=== PATIENT | female | born 1995 | race Caucasian/White ===

== ENCOUNTER 2016-10-21 14:08 | Emergency (ER) | payer OTHER ==
[~2016-10-21] VITALS: Ht 149.9 cm; Wt 75.0 kg
[~2016-10-21 14:08] MED LIST: LITH300C3 PO; RISP2TAB22 PO
[2016-10-21] MEDS ORDERED: LEVO25TA9 PO (14:18)
[2016-10-21] MEDS ORDERED: OLAN2.5T3 PO (14:18)
[2016-10-21] MEDS ORDERED: ACETAMINOPHEN 500 MG TABLET PO ONE (18:15)
[2016-10-21 18:23] LABS: BASOPHILS % (AUTO) 1.8 % (0.0-2.0); EOSINOPHILS % (AUTO) 0.8 % (1.0-6.0); HEMOGLOBIN 13.2 g/dL (12.0-16.0); LYMPHOCYTES # (AUTO) 2.6 K/uL (1.0-4.8); LYMPHOCYTES % (AUTO) 16.7 % (22.0-44.0); MEAN CORPUSCULAR HEMOGLOBIN 29.9 pg (26.0-34.0); MEAN CORPUSCULAR HGB CONC 33.8 G/dL (31.0-37.0); MEAN CORPUSCULAR VOLUME 89 fL (80-100); MONOCYTES # (AUTO) 0.8 K/uL (0.1-1.0); MONOCYTES % (AUTO) 4.9 % (2.0-9.0); NEUTROPHILS # (AUTO) 11.7 K/uL (1.8-7.7); NEUTROPHILS % (AUTO) 75.8 % (40.0-70.0); PLATELET COUNT (AUTO) 309 K/uL (150-450); RED BLOOD CELL COUNT(AUTO) 4.41 MIL/uL (4.00-5.20); RED CELL DISTRIBUTION WIDTH 14.9 % (11.5-14.5); WHITE BLOOD COUNT (AUTO) 15.4 K/uL (4.5-11.0)
[2016-10-21 18:24] LABS: ANION GAP 10 mmol/L (8-16); CALCIUM, TOTAL 8.8 mg/dL (8.8-10.5); CARBON DIOXIDE 24 mmol/L (22-29); CHLORIDE 104 mmol/L (98-107); GLOMERULAR FILTR. RATE CALC > 60 mL/min (>60); POTASSIUM 3.8 mmol/L (3.5-5.1); SODIUM SERUM 138 mmol/L (136-145); UREA NITROGEN, BLOOD 9 mg/dL (7-18)
[2016-10-21 18:30] LABS: ALANINE AMINOTRANSFERASE 26 U/L (12-78); ALBUMIN 3.4 g/dL (3.4-5.0); ASPARTATE AMINOTRANSFERASE 15 U/L (15-37); BILIRUBIN,TOTAL 0.3 mg/dL (0.1-1.0); TOTAL PROTEIN, SERUM 7.2 g/dL (6.4-8.2)
[2016-10-21 21:36] VITALS: BP 121/83
[2016-10-21] MEDS ORDERED: LORazepam 2 MG TABLET PO ONE (21:45)
== END 2016-10-21 21:57 | disposition home or self-care (01) ==
LOC: EMS 14:10
DX: F41.9 Anxiety disorder, unspecified (principal); F31.9 Bipolar disorder, unspecified; E11.9 Type 2 diabetes mellitus without complications; E03.9 Hypothyroidism, unspecified; F15.90 Other stimulant use, unspecified, uncomplicated; F12.90 Cannabis use, unspecified, uncomplicated; Z91.018 Allergy to other foods
CPT/HCPCS: 36415; 80053; 80307; 84703; 85025; 99284; G0480

== ENCOUNTER 2018-04-30 13:28 | Inpatient (IN) | payer MEDICAID, OTHER ==
[~2018-04-30] VITALS: Ht 154.9 cm; Wt 72.7 kg
[~2018-04-30 13:28] MED LIST changes: +GABA-531 PO; -LITH300C3 PO; +OXCA300T29 PO; +QUET200T PO; -RISP2TAB22 PO
[2018-04-30] MEDS ORDERED: HALOPERIDOL LACTATE 5 MG/ML VIAL IM ONE ×2 (14:00→14:45)
[2018-04-30] MEDS ORDERED: LORazepam 2 MG/ML VIAL IM ONE ×2 (14:00→14:45)
[2018-04-30] MEDS ORDERED: DiphenhydrAMINE HCL 50 MG/ML VIAL IM ONE (14:00)
[2018-04-30 14:12] LABS: BASOPHILS % (AUTO) 1.1 % (0.0-2.0); EOSINOPHILS % (AUTO) 0.3 % (1.0-6.0); HEMATOCRIT 42.8 % (36-46); HEMOGLOBIN 14.4 g/dL (12.0-16.0); LYMPHOCYTES # (AUTO) 2.7 K/uL (1.0-4.8); LYMPHOCYTES % (AUTO) 13.9 % (22.0-44.0); MEAN CORPUSCULAR HGB CONC 33.6 G/dL (31.0-37.0); MEAN CORPUSCULAR VOLUME 92 fL (80-100); MONOCYTES # (AUTO) 1.6 K/uL (0.1-1.0); MONOCYTES % (AUTO) 8.2 % (2.0-9.0); NEUTROPHILS # (AUTO) 14.9 K/uL (1.8-7.7); NEUTROPHILS % (AUTO) 76.5 % (40.0-70.0); PLATELET COUNT (AUTO) 350 K/uL (150-450); RED BLOOD CELL COUNT(AUTO) 4.63 MIL/uL (4.00-5.20); RED CELL DISTRIBUTION WIDTH 13.5 % (11.5-14.5)
[2018-04-30 14:16] LABS: ANION GAP 9 mmol/L (8-16); CALCIUM, TOTAL 9.7 mg/dL (8.8-10.5); CARBON DIOXIDE 26 mmol/L (22-29); CHLORIDE 104 mmol/L (98-107); CREATININE 0.69 mg/dL (0.60-1.30); GLOMERULAR FILTR. RATE CALC > 60 mL/min (>60); GLUCOSE,RANDOM 105 mg/dL (70-110); POTASSIUM 3.6 mmol/L (3.5-5.1); SODIUM SERUM 139 mmol/L (136-145); UREA NITROGEN, BLOOD 14 mg/dL (7-18)
[2018-04-30 14:21] LABS: ALANINE AMINOTRANSFERASE 23 U/L (12-78); ALBUMIN 3.9 g/dL (3.4-5.0); ALKALINE PHOSPHATASE 57 U/L (46-116); ASPARTATE AMINOTRANSFERASE 28 U/L (15-37); BILIRUBIN,TOTAL 0.5 mg/dL (0.1-1.0); TOTAL PROTEIN, SERUM 7.3 g/dL (6.4-8.2)
[2018-04-30 15:20] LABS: APPEARANCE,URINE CLEAR (CLEAR); BILIRUBIN,URINE NEGATIVE (NEGATIVE); GLUCOSE, URINE (UA) NEGATIVE (NEGATIVE); KETONES,URINE TRACE mg/dL (NEGATIVE); LEUKOCYTE ESTERASE ,URINE NEGATIVE (NEGATIVE); NITRATE,URINE NEGATIVE (NEGATIVE); OCCULT BLOOD,URINE SMALL (NEGATIVE); PROTEIN,URINE TRACE (NEGATIVE); UROBILINOGEN,URINE 0.2 mg/dL (<=1.0)
[2018-04-30 15:25] LABS: AMPHET/METH SCREEN,URINE POSITIVE (NEGATIVE); BARBITURATE SCREEN, URINE NEGATIVE (NEGATIVE); BENZODIAZEPINES SCREEN,URINE NEGATIVE (NEGATIVE); CANNABINOID SCREEN,URINE POSITIVE (NEGATIVE); COCAINE SCREEN,URINE NEGATIVE (NEGATIVE); METHADONE SCREEN, URINE NEGATIVE (NEGATIVE); OPIATE SCREEN,URINE NEGATIVE (NEGATIVE)
[2018-04-30 15:30] LABS: WBC,URINE 0-2 /HPF (0-5)
[2018-04-30 15:31] LABS: BACTERIA,URINE Few /HPF (None Seen); MUCUS,URINE Moderate LPF (None Seen); SQUAMOUS EPITHELIAL CELL,UR Few /LPF (None Seen)
[2018-04-30 15:33] LABS: PHENCYCLIDINE SCREEN,URINE NEGATIVE (NEGATIVE)
[2018-04-30] MEDS ORDERED: ZOLPIDEM TARTRATE 10 MG TABLET PO PRN (17:15)
[2018-04-30 17:40] LABS: GLUCOSE,POINT OF CARE 102 MG/DL (70-110)
[2018-04-30 20:33] VITALS: BP 137/77
[2018-04-30] MEDS ORDERED: MAG HYDROX/AL HYDROX/SIMETH ES 30 ML SUSPENSION UDCUP PO PRN (20:45)
[2018-04-30] MEDS ORDERED: MAGNESIUM HYDROXIDE SUSPENSION 30 ML UDCUP PO PRN (20:45)
[2018-04-30] MEDS ORDERED: NICOTINE 14 MG/24 HOUR PATCH TD PRN (20:45)
[2018-04-30] MEDS ORDERED: LOPERAMIDE HCL 2 MG CAPSULE PO PRN (20:45)
[2018-04-30] MEDS ORDERED: CloNIDine HCL 0.1 MG TABLET PO PRN (20:45)
[2018-04-30] MEDS ORDERED: ALBUTEROL SULFATE HFA 90 MCG/PUFF 8 GM INHALER IH PRN (20:45)
[2018-04-30] MEDS ORDERED: IBUPROFEN 400 MG TABLET PO PRN (20:45)
[2018-04-30] MEDS ORDERED: DOCUSATE SODIUM 100 MG CAPSULE PO PRN (20:45)
[2018-04-30] MEDS ORDERED: GuaiFENesin/D-METHORPHAN [SUGAR-FREE] 200-20MG/10 ML SYRUP UDCUP PO PRN (20:45)
[2018-04-30] MEDS ORDERED: ONDANSETRON HCL 4 MG TABLET PO PRN (20:45)
[2018-04-30] MEDS ORDERED: PETROLATUM,WHITE 71 GM JELLY TP PRN (20:45)
[2018-04-30] MEDS ORDERED: ACETAMINOPHEN 325 MG TABLET PO PRN (20:45)
[2018-05-01 06:25] VITALS: BP 128/72
[2018-05-01] MEDS: HALOPERIDOL 5 MG TABLET PO PRN (06:29)
[2018-05-01] MEDS: LORazepam 2 MG TABLET PO PRN ×2 (06:29→18:34)
[2018-05-01 07:56] LABS: BASOPHILS % (AUTO) 0.7 % (0.0-2.0); EOSINOPHILS % (AUTO) 0.4 % (1.0-6.0); HEMATOCRIT 40.7 % (36-46); HEMOGLOBIN 13.7 g/dL (12.0-16.0); LYMPHOCYTES # (AUTO) 2.3 K/uL (1.0-4.8); LYMPHOCYTES % (AUTO) 18.6 % (22.0-44.0); MEAN CORPUSCULAR HEMOGLOBIN 30.9 pg (26.0-34.0); MEAN CORPUSCULAR HGB CONC 33.7 G/dL (31.0-37.0); MEAN CORPUSCULAR VOLUME 92 fL (80-100); MONOCYTES # (AUTO) 1.1 K/uL (0.1-1.0); MONOCYTES % (AUTO) 8.5 % (2.0-9.0); NEUTROPHILS % (AUTO) 71.8 % (40.0-70.0); PLATELET COUNT (AUTO) 326 K/uL (150-450); RED BLOOD CELL COUNT(AUTO) 4.44 MIL/uL (4.00-5.20); RED CELL DISTRIBUTION WIDTH 13.6 % (11.5-14.5)
[2018-05-01 08:07] LABS: HEMOGLOBIN A1C 5.2 % (4.5-6.2)
[2018-05-01 08:08] LABS: ALANINE AMINOTRANSFERASE 25 U/L (12-78); ALBUMIN 3.7 g/dL (3.4-5.0); ALKALINE PHOSPHATASE 57 U/L (46-116); ANION GAP 9 mmol/L (8-16); ASPARTATE AMINOTRANSFERASE 35 U/L (15-37); BILIRUBIN,TOTAL 0.5 mg/dL (0.1-1.0); CARBON DIOXIDE 26 mmol/L (22-29); CHLORIDE 103 mmol/L (98-107); CREATININE 0.74 mg/dL (0.60-1.30); GLOMERULAR FILTR. RATE CALC > 60 mL/min (>60); GLUCOSE,RANDOM 94 mg/dL (70-110); POTASSIUM 3.7 mmol/L (3.5-5.1); SODIUM SERUM 138 mmol/L (136-145); UREA NITROGEN, BLOOD 13 mg/dL (7-18)
[2018-05-01 08:19] LABS: CHOLESTEROL 156 mg/dL (131-200); FREE T4 (FREE THYROXINE) 0.92 ng/dL (0.76-1.46); HCG,QUANTITATIVE < 1 mIU/mL (0-6); HDL CHOLESTEROL 52 mg/dL (40-60); LDL CHOL (CALC.) 84 mg/dL (0-130); THYROID STIMULATING HORMONE 5.13 uIU/mL (0.36-3.74); TRIGLYCERIDES 101 mg/dL (15-150)
[2018-05-01 08:50] VITALS: BP 116/60
[2018-05-01] MEDS: QUEtiapine FUMARATE 100 MG TABLET PO SCH (12:43)
[2018-05-01] MEDS: OXcarbazepine 300 MG TABLET PO SCH ×2 (12:44→20:49)
[2018-05-01 16:36] VITALS: BP 150/85
[2018-05-01 20:45] VITALS: BP 107/70
[2018-05-01] MEDS: GABAPENTIN 300 MG CAPSULE PO SCH (20:49)
[2018-05-01] MEDS: QUEtiapine FUMARATE 200 MG TABLET PO SCH (20:49)
[2018-05-02] MEDS: QUEtiapine FUMARATE 100 MG TABLET PO SCH (08:19)
[2018-05-02] MEDS: OXcarbazepine 300 MG TABLET PO SCH ×2 (08:19→20:15)
[2018-05-02] MEDS: LORazepam 2 MG TABLET PO PRN ×2 (08:19→16:24)
[2018-05-02 08:40] VITALS: BP 121/73
[2018-05-02] MEDS: HALOPERIDOL 5 MG TABLET PO PRN ×2 (12:23→16:24)
[2018-05-02 16:00] VITALS: BP 126/84
[2018-05-02] MEDS: GABAPENTIN 300 MG CAPSULE PO SCH (20:15)
[2018-05-02] MEDS: QUEtiapine FUMARATE 200 MG TABLET PO SCH (20:17)
[2018-05-03 01:48] VITALS: BP 116/82
[2018-05-03] MEDS: LORazepam 2 MG TABLET PO PRN ×2 (05:49→10:51)
[2018-05-03] MEDS: HALOPERIDOL 5 MG TABLET PO PRN ×2 (05:49→10:51)
[2018-05-03] MEDS: QUEtiapine FUMARATE 100 MG TABLET PO SCH (08:08)
[2018-05-03] MEDS: OXcarbazepine 300 MG TABLET PO SCH (08:08)
[2018-05-03] MEDS ORDERED: QUET100T PO (11:19)
== END 2018-05-03 12:25 | disposition home or self-care (01) | DRG 750 ==
LOC: EMS 13:29 → B3A 19:09
PROVIDERS: ADMIT Psychiatry & Neurology Child & Adolescent Psychiatry; ATTEND Psychiatry & Neurology Psychiatry
DX: F25.0 Schizoaffective disorder, bipolar type (principal); R45.851 Suicidal ideations; F15.20 Other stimulant dependence, uncomplicated; E11.9 Type 2 diabetes mellitus without complications; Z78.1 Physical restraint status; D72.829 Elevated white blood cell count, unspecified; E03.9 Hypothyroidism, unspecified; F41.9 Anxiety disorder, unspecified; F90.9 Attention-deficit hyperactivity disorder, unspecified type; F10.10 Alcohol abuse, uncomplicated; F32.9 Major depressive disorder, single episode, unspecified; R51 Headache; Z71.41 Alcohol abuse counseling and surveillance of alcoholic; Z79.899 Other long term (current) drug therapy; Z91.010 Allergy to peanuts; Z71.51 Drug abuse counseling and surveillance of drug abuser
CPT/HCPCS: 83036; 84436; 84439; 84443; 87081; 96372; G0480; J1200; J1630; J2060

== ENCOUNTER 2018-05-05 10:10 | Inpatient (IN) | payer MEDICAID, OTHER ==
[~2018-05-05] VITALS: Ht 149.9 cm; Wt 62.4 kg
[~2018-05-05 10:10] MED LIST changes: +QUET100T PO
[2018-05-05 10:39] LABS: GLUCOSE,POINT OF CARE 107 MG/DL (70-110)
[2018-05-05] MEDS ORDERED: DiphenhydrAMINE HCL 50 MG/ML VIAL IM ONE (11:15)
[2018-05-05] MEDS ORDERED: LORazepam 2 MG/ML VIAL IM ONE (11:15)
[2018-05-05] MEDS ORDERED: HALOPERIDOL LACTATE 5 MG/ML VIAL IM ONE (11:15)
[2018-05-05 11:20] LABS: BASOPHILS % (AUTO) 0.3 % (0.0-2.0); EOSINOPHILS % (AUTO) 0.1 % (1.0-6.0); HEMATOCRIT 44.4 % (36-46); HEMOGLOBIN 15.1 g/dL (12.0-16.0); LYMPHOCYTES # (AUTO) 1.8 K/uL (1.0-4.8); LYMPHOCYTES % (AUTO) 11.5 % (22.0-44.0); MEAN CORPUSCULAR HEMOGLOBIN 31.5 pg (26.0-34.0); MEAN CORPUSCULAR HGB CONC 34.1 G/dL (31.0-37.0); MEAN CORPUSCULAR VOLUME 93 fL (80-100); MONOCYTES # (AUTO) 0.7 K/uL (0.1-1.0); MONOCYTES % (AUTO) 4.5 % (2.0-9.0); NEUTROPHILS # (AUTO) 13.3 K/uL (1.8-7.7); NEUTROPHILS % (AUTO) 83.6 % (40.0-70.0); PLATELET COUNT (AUTO) 347 K/uL (150-450); RED BLOOD CELL COUNT(AUTO) 4.79 MIL/uL (4.00-5.20); RED CELL DISTRIBUTION WIDTH 13.4 % (11.5-14.5)
[2018-05-05 11:22] LABS: AMPHET/METH SCREEN,URINE NEGATIVE (NEGATIVE); BARBITURATE SCREEN, URINE NEGATIVE (NEGATIVE); BENZODIAZEPINES SCREEN,URINE NEGATIVE (NEGATIVE); CANNABINOID SCREEN,URINE POSITIVE (NEGATIVE); COCAINE SCREEN,URINE NEGATIVE (NEGATIVE); METHADONE SCREEN, URINE NEGATIVE (NEGATIVE); OPIATE SCREEN,URINE NEGATIVE (NEGATIVE)
[2018-05-05 11:23] LABS: PHENCYCLIDINE SCREEN,URINE NEGATIVE (NEGATIVE)
[2018-05-05] MEDS ORDERED: IBUPROFEN 400 MG TABLET PO PRN ×2 (11:30→17:15)
[2018-05-05] MEDS ORDERED: ACETAMINOPHEN 325 MG TABLET PO PRN ×2 (11:30→17:15)
[2018-05-05 11:31] LABS: ANION GAP 9 mmol/L (8-16); CALCIUM, TOTAL 9.5 mg/dL (8.8-10.5); CARBON DIOXIDE 26 mmol/L (22-29); CHLORIDE 102 mmol/L (98-107); CREATININE 0.79 mg/dL (0.60-1.30); GLOMERULAR FILTR. RATE CALC > 60 mL/min (>60); GLUCOSE,RANDOM 133 mg/dL (70-110); POTASSIUM 3.8 mmol/L (3.5-5.1); SODIUM SERUM 137 mmol/L (136-145); UREA NITROGEN, BLOOD 8 mg/dL (7-18)
[2018-05-05 11:37] LABS: ALANINE AMINOTRANSFERASE 24 U/L (12-78); ALBUMIN 3.9 g/dL (3.4-5.0); ALKALINE PHOSPHATASE 61 U/L (46-116); ASPARTATE AMINOTRANSFERASE 19 U/L (15-37); BILIRUBIN,TOTAL 0.3 mg/dL (0.1-1.0); TOTAL PROTEIN, SERUM 7.5 g/dL (6.4-8.2)
[2018-05-05 16:42] VITALS: BP 131/69
[2018-05-05] MEDS: LORazepam 2 MG TABLET PO PRN (17:10)
[2018-05-05] MEDS: HALOPERIDOL 5 MG TABLET PO PRN (17:10)
[2018-05-05] MEDS ORDERED: MAG HYDROX/AL HYDROX/SIMETH ES 30 ML SUSPENSION UDCUP PO PRN (17:15)
[2018-05-05] MEDS ORDERED: ONDANSETRON HCL 4 MG TABLET PO PRN (17:15)
[2018-05-05] MEDS ORDERED: GuaiFENesin/D-METHORPHAN [SUGAR-FREE] 200-20MG/10 ML SYRUP UDCUP PO PRN (17:15)
[2018-05-05] MEDS ORDERED: CloNIDine HCL 0.1 MG TABLET PO PRN (17:15)
[2018-05-05] MEDS ORDERED: DOCUSATE SODIUM 100 MG CAPSULE PO PRN (17:15)
[2018-05-05] MEDS ORDERED: LOPERAMIDE HCL 2 MG CAPSULE PO PRN (17:15)
[2018-05-05] MEDS ORDERED: ALBUTEROL SULFATE HFA 90 MCG/PUFF 8 GM INHALER IH PRN (17:15)
[2018-05-05] MEDS ORDERED: MAGNESIUM HYDROXIDE SUSPENSION 30 ML UDCUP PO PRN (17:15)
[2018-05-05] MEDS ORDERED: PETROLATUM,WHITE 71 GM JELLY TP PRN (17:15)
[2018-05-05] MEDS ORDERED: PNEUMOCOCCAL VACCINE POLYVALENT 0.5 ML VIAL [PPSV23] IM ONE (18:30)
[2018-05-06 05:03] VITALS: BP 136/72
[2018-05-06 08:20] LABS: BASOPHILS % (AUTO) 0.5 % (0.0-2.0); EOSINOPHILS % (AUTO) 1.1 % (1.0-6.0); HEMATOCRIT 43.6 % (36-46); HEMOGLOBIN 14.9 g/dL (12.0-16.0); LYMPHOCYTES # (AUTO) 2.1 K/uL (1.0-4.8); MEAN CORPUSCULAR HEMOGLOBIN 31.6 pg (26.0-34.0); MEAN CORPUSCULAR HGB CONC 34.3 G/dL (31.0-37.0); MEAN CORPUSCULAR VOLUME 92 fL (80-100); MONOCYTES # (AUTO) 0.8 K/uL (0.1-1.0); NEUTROPHILS # (AUTO) 7.9 K/uL (1.8-7.7); NEUTROPHILS % (AUTO) 72.4 % (40.0-70.0); PLATELET COUNT (AUTO) 302 K/uL (150-450); RED BLOOD CELL COUNT(AUTO) 4.73 MIL/uL (4.00-5.20); RED CELL DISTRIBUTION WIDTH 13.6 % (11.5-14.5)
[2018-05-06 08:38] VITALS: BP 124/75
[2018-05-06 08:38] LABS: HEMOGLOBIN A1C 5.4 % (4.5-6.2)
[2018-05-06] MEDS: NICOTINE 7 MG/24 HOUR PATCH TD SCH (08:45)
[2018-05-06] MEDS: LORazepam 2 MG TABLET PO PRN (08:45)
[2018-05-06] MEDS: HALOPERIDOL 5 MG TABLET PO PRN (08:46)
[2018-05-06 09:01] LABS: ALANINE AMINOTRANSFERASE 22 U/L (12-78); ALBUMIN 3.6 g/dL (3.4-5.0); ALKALINE PHOSPHATASE 56 U/L (46-116); ANION GAP 7 mmol/L (8-16); ASPARTATE AMINOTRANSFERASE 27 U/L (15-37); BILIRUBIN,TOTAL 0.3 mg/dL (0.1-1.0); CALCIUM, TOTAL 9.5 mg/dL (8.8-10.5); CARBON DIOXIDE 30 mmol/L (22-29); CHLORIDE 103 mmol/L (98-107); CHOL/HDL RATIO 3.6 (3.9-5.7); CHOLESTEROL 174 mg/dL (131-200); CREATININE 0.83 mg/dL (0.60-1.30); GLOMERULAR FILTR. RATE CALC > 60 mL/min (>60); GLUCOSE,RANDOM 79 mg/dL (70-110); HDL CHOLESTEROL 49 mg/dL (40-60); LDL CHOL (CALC.) 100 mg/dL (0-130); POTASSIUM 4.9 mmol/L (3.5-5.1); SODIUM SERUM 140 mmol/L (136-145); THYROID STIMULATING HORMONE 2.46 uIU/mL (0.36-3.74); TOTAL PROTEIN, SERUM 6.7 g/dL (6.4-8.2); TRIGLYCERIDES 127 mg/dL (15-150); UREA NITROGEN, BLOOD 15 mg/dL (7-18)
[2018-05-06] MEDS: QUEtiapine FUMARATE 100 MG TABLET PO SCH (12:29)
[2018-05-06] MEDS: OXcarbazepine 300 MG TABLET PO SCH (16:35)
[2018-05-06 17:13] VITALS: BP 106/60
[2018-05-06] MEDS: GABAPENTIN 300 MG CAPSULE PO SCH (20:42)
[2018-05-06] MEDS: QUEtiapine FUMARATE 200 MG TABLET PO SCH (20:42)
[2018-05-07 05:54] VITALS: BP 123/70
[2018-05-07] MEDS: LORazepam 2 MG TABLET PO PRN ×3 (08:10→17:00)
[2018-05-07] MEDS: OXcarbazepine 300 MG TABLET PO SCH ×2 (08:10→17:17)
[2018-05-07] MEDS: HALOPERIDOL 5 MG TABLET PO PRN ×3 (08:11→17:00)
[2018-05-07] MEDS: QUEtiapine FUMARATE 100 MG TABLET PO SCH (08:11)
[2018-05-07] MEDS: NICOTINE 7 MG/24 HOUR PATCH TD SCH (08:11)
[2018-05-07 08:19] VITALS: BP 122/70
[2018-05-07 16:15] VITALS: BP 123/87
[2018-05-07] MEDS: MUPIROCIN CALCIUM 2% 15 GM CREAM TP SCH (17:17)
[2018-05-07] MEDS: GABAPENTIN 300 MG CAPSULE PO SCH (20:20)
[2018-05-07] MEDS: QUEtiapine FUMARATE 200 MG TABLET PO SCH (20:20)
[2018-05-08 00:15] VITALS: BP 128/80
[2018-05-08] MEDS: LORazepam 2 MG TABLET PO PRN ×3 (00:52→16:23)
[2018-05-08] MEDS: ZOLPIDEM TARTRATE 10 MG TABLET PO PRN (00:52)
[2018-05-08 08:37] VITALS: BP 118/67
[2018-05-08] MEDS: NICOTINE 7 MG/24 HOUR PATCH TD SCH (08:54)
[2018-05-08] MEDS: OXcarbazepine 300 MG TABLET PO SCH ×2 (08:54→16:23)
[2018-05-08] MEDS: MUPIROCIN CALCIUM 2% 15 GM CREAM TP SCH ×2 (08:55→17:24)
[2018-05-08] MEDS: QUEtiapine FUMARATE 100 MG TABLET PO SCH (09:00)
[2018-05-08 16:23] VITALS: BP 124/62
[2018-05-08] MEDS: QUEtiapine FUMARATE 200 MG TABLET PO SCH (20:53)
[2018-05-08] MEDS: GABAPENTIN 300 MG CAPSULE PO SCH (20:53)
[2018-05-09 01:20] VITALS: BP 116/71
[2018-05-09 08:41] VITALS: BP 120/73
[2018-05-09] MEDS: OXcarbazepine 300 MG TABLET PO SCH ×2 (09:12→17:09)
[2018-05-09] MEDS: QUEtiapine FUMARATE 100 MG TABLET PO SCH (09:12)
[2018-05-09] MEDS: MUPIROCIN CALCIUM 2% 15 GM CREAM TP SCH ×2 (09:12→16:34)
[2018-05-09] MEDS: NICOTINE 7 MG/24 HOUR PATCH TD SCH (09:13)
[2018-05-09] MEDS: LORazepam 2 MG TABLET PO PRN ×2 (11:07→16:32)
[2018-05-09] MEDS: HALOPERIDOL 5 MG TABLET PO PRN (16:32)
[2018-05-09 17:29] VITALS: BP 117/67
[2018-05-09] MEDS: GABAPENTIN 300 MG CAPSULE PO SCH (20:20)
[2018-05-09] MEDS: QUEtiapine FUMARATE 200 MG TABLET PO SCH (20:20)
[2018-05-10 06:25] VITALS: BP 122/78
[2018-05-10 08:16] VITALS: BP 117/75
[2018-05-10] MEDS: OXcarbazepine 300 MG TABLET PO SCH ×2 (08:38→17:24)
[2018-05-10] MEDS: QUEtiapine FUMARATE 100 MG TABLET PO SCH (08:38)
[2018-05-10] MEDS: NICOTINE 7 MG/24 HOUR PATCH TD SCH (08:39)
[2018-05-10] MEDS: LORazepam 2 MG TABLET PO PRN ×2 (08:40→17:24)
[2018-05-10] MEDS: MUPIROCIN CALCIUM 2% 15 GM CREAM TP SCH ×2 (08:40→17:24)
[2018-05-10 17:47] VITALS: BP 109/79
[2018-05-10] MEDS: HALOPERIDOL 5 MG TABLET PO PRN (19:00)
[2018-05-10] MEDS: GABAPENTIN 300 MG CAPSULE PO SCH (20:14)
[2018-05-10] MEDS: QUEtiapine FUMARATE 200 MG TABLET PO SCH (20:14)
[2018-05-11 00:30] VITALS: BP 121/78
[2018-05-11 08:13] VITALS: BP 121/69
[2018-05-11] MEDS: NICOTINE 7 MG/24 HOUR PATCH TD SCH ×2 (09:00→09:18)
[2018-05-11] MEDS: OXcarbazepine 300 MG TABLET PO SCH ×2 (09:19→16:26)
[2018-05-11] MEDS: QUEtiapine FUMARATE 100 MG TABLET PO SCH (09:20)
[2018-05-11] MEDS: MUPIROCIN CALCIUM 2% 15 GM CREAM TP SCH ×2 (09:22→16:26)
[2018-05-11] MEDS: HALOPERIDOL 5 MG TABLET PO PRN ×2 (09:26→16:26)
[2018-05-11] MEDS: LORazepam 2 MG TABLET PO PRN ×2 (09:26→16:26)
[2018-05-11 16:11] VITALS: BP 110/69
[2018-05-11] MEDS: QUEtiapine FUMARATE 200 MG TABLET PO SCH (21:37)
[2018-05-11] MEDS: GABAPENTIN 300 MG CAPSULE PO SCH (21:37)
[2018-05-12 01:45] VITALS: BP 122/78
[2018-05-12 08:18] VITALS: BP 114/74
[2018-05-12] MEDS: OXcarbazepine 300 MG TABLET PO SCH ×2 (08:25→17:09)
[2018-05-12] MEDS: QUEtiapine FUMARATE 100 MG TABLET PO SCH (08:26)
[2018-05-12] MEDS: LORazepam 2 MG TABLET PO PRN ×2 (08:26→17:09)
[2018-05-12] MEDS: MUPIROCIN CALCIUM 2% 15 GM CREAM TP SCH ×2 (08:26→17:08)
[2018-05-12] MEDS: NICOTINE 7 MG/24 HOUR PATCH TD SCH (08:33)
[2018-05-12] MEDS: HALOPERIDOL 5 MG TABLET PO PRN ×2 (09:50→17:09)
[2018-05-12 16:15] VITALS: BP 107/64
[2018-05-12] MEDS: QUEtiapine FUMARATE 200 MG TABLET PO SCH (20:24)
[2018-05-12] MEDS: ZOLPIDEM TARTRATE 10 MG TABLET PO PRN (20:24)
[2018-05-12] MEDS: GABAPENTIN 300 MG CAPSULE PO SCH (20:24)
[2018-05-13 06:10] VITALS: BP 101/65
[2018-05-13] MEDS: OXcarbazepine 300 MG TABLET PO SCH ×3 (08:05→16:01)
[2018-05-13] MEDS: NICOTINE 7 MG/24 HOUR PATCH TD SCH (08:05)
[2018-05-13] MEDS: QUEtiapine FUMARATE 100 MG TABLET PO SCH (08:05)
[2018-05-13] MEDS: MUPIROCIN CALCIUM 2% 15 GM CREAM TP SCH (08:05)
[2018-05-13 08:16] VITALS: BP 109/71
[2018-05-13] MEDS: HALOPERIDOL 5 MG TABLET PO PRN ×2 (09:21→14:39)
[2018-05-13 17:10] VITALS: BP 120/73
[2018-05-13] MEDS: ZOLPIDEM TARTRATE 10 MG TABLET PO PRN (21:28)
[2018-05-13] MEDS: GABAPENTIN 300 MG CAPSULE PO SCH (21:28)
[2018-05-13] MEDS: QUEtiapine FUMARATE 200 MG TABLET PO SCH (21:28)
[2018-05-14 01:52] VITALS: BP 108/65
[2018-05-14 08:22] VITALS: BP 97/63
[2018-05-14] MEDS: HALOPERIDOL 5 MG TABLET PO PRN ×2 (08:45→16:15)
[2018-05-14] MEDS: NICOTINE 7 MG/24 HOUR PATCH TD SCH (09:00)
[2018-05-14] MEDS: OXcarbazepine 300 MG TABLET PO SCH ×2 (09:48→16:14)
[2018-05-14] MEDS: QUEtiapine FUMARATE 100 MG TABLET PO SCH (09:48)
[2018-05-14 16:24] VITALS: BP 134/72
[2018-05-14] MEDS: QUEtiapine FUMARATE 200 MG TABLET PO SCH (20:06)
[2018-05-14] MEDS: GABAPENTIN 300 MG CAPSULE PO SCH (20:06)
[2018-05-15] MEDS: HALOPERIDOL 5 MG TABLET PO PRN ×2 (05:28→17:24)
[2018-05-15 06:40] VITALS: BP 113/71
[2018-05-15 08:42] VITALS: BP 111/60
[2018-05-15] MEDS: QUEtiapine FUMARATE 100 MG TABLET PO SCH (11:26)
[2018-05-15] MEDS: NICOTINE 7 MG/24 HOUR PATCH TD SCH (11:27)
[2018-05-15] MEDS: OXcarbazepine 300 MG TABLET PO SCH ×2 (11:27→17:24)
[2018-05-15 16:15] VITALS: BP 109/71
[2018-05-15] MEDS: LORazepam 2 MG TABLET PO PRN (17:24)
[2018-05-15] MEDS: GABAPENTIN 300 MG CAPSULE PO SCH (20:33)
[2018-05-15] MEDS: QUEtiapine FUMARATE 200 MG TABLET PO SCH (20:33)
[2018-05-16 06:42] VITALS: BP 102/57
[2018-05-16] MEDS: QUEtiapine FUMARATE 100 MG TABLET PO SCH (08:11)
[2018-05-16] MEDS: OXcarbazepine 300 MG TABLET PO SCH ×2 (08:12→17:40)
[2018-05-16 08:16] VITALS: BP 106/77
[2018-05-16] MEDS: NICOTINE 7 MG/24 HOUR PATCH TD SCH (08:19)
[2018-05-16] MEDS: HALOPERIDOL 5 MG TABLET PO PRN ×2 (08:37→17:41)
[2018-05-16 16:10] VITALS: BP 118/72
[2018-05-16] MEDS: QUEtiapine FUMARATE 200 MG TABLET PO SCH (20:48)
[2018-05-16] MEDS: ZOLPIDEM TARTRATE 10 MG TABLET PO PRN (20:48)
[2018-05-16] MEDS: GABAPENTIN 300 MG CAPSULE PO SCH (20:48)
[2018-05-17 06:04] VITALS: BP 114/80
[2018-05-17] MEDS: QUEtiapine FUMARATE 100 MG TABLET PO SCH (08:08)
[2018-05-17] MEDS: OXcarbazepine 300 MG TABLET PO SCH (08:08)
[2018-05-17] MEDS: NICOTINE 7 MG/24 HOUR PATCH TD SCH (08:08)
[2018-05-17 08:22] VITALS: BP 119/65
== END 2018-05-17 10:00 | disposition home or self-care (01) | DRG 753 ==
LOC: EMS 10:11 → B3A 13:01
PROVIDERS: ADMIT Psychiatry & Neurology Psychiatry; ATTEND Psychiatry & Neurology Psychiatry
DX: F31.2 Bipolar disorder, current episode manic severe with psychotic features (principal); E11.9 Type 2 diabetes mellitus without complications; D72.829 Elevated white blood cell count, unspecified; F10.10 Alcohol abuse, uncomplicated; E03.9 Hypothyroidism, unspecified; F12.10 Cannabis abuse, uncomplicated; F41.9 Anxiety disorder, unspecified; F15.90 Other stimulant use, unspecified, uncomplicated; F90.9 Attention-deficit hyperactivity disorder, unspecified type; Z59.0 Homelessness; Z71.41 Alcohol abuse counseling and surveillance of alcoholic; Z71.51 Drug abuse counseling and surveillance of drug abuser; Z91.018 Allergy to other foods; Z79.899 Other long term (current) drug therapy
CPT/HCPCS: 83036; 84443; 87081; 90686; 90732; 96372; 99291; G0480; J1200; J1630; J2060

== ENCOUNTER 2019-12-08 23:42 | Inpatient (IN) | payer MEDICAID, OTHER ==
[~2019-12-08] VITALS: Ht 152.4 cm; Wt 51.7 kg
[~2019-12-08 23:42] MED LIST changes: +GABA-1181 PO; -GABA-531 PO; -OXCA300T29 PO; +OXCA300T57 PO
[2019-12-09] MEDS ORDERED: HALOPERIDOL LACTATE 5 MG/ML VIAL IM ONE (00:30)
[2019-12-09] MEDS ORDERED: LORazepam 2 MG/ML VIAL IM ONE (00:30)
[2019-12-09] MEDS ORDERED: DiphenhydrAMINE HCL 50 MG/ML VIAL IM ONE (00:30)
[2019-12-09 01:00] LABS: BASOPHILS % (AUTO) 0.5 % (0.0-2.0); EOSINOPHILS % (AUTO) 0.2 % (1.0-6.0); HEMATOCRIT 40.1 % (36-46); HEMOGLOBIN 13.2 g/dL (12.0-16.0); LYMPHOCYTES # (AUTO) 1.7 K/uL (1.0-4.8); LYMPHOCYTES % (AUTO) 12.5 % (22.0-44.0); MEAN CORPUSCULAR HGB CONC 32.9 G/dL (31.0-37.0); MEAN CORPUSCULAR VOLUME 94 fL (80-100); MONOCYTES # (AUTO) 0.9 K/uL (0.1-1.0); MONOCYTES % (AUTO) 6.6 % (2.0-9.0); NEUTROPHILS # (AUTO) 10.7 K/uL (1.8-7.7); NEUTROPHILS % (AUTO) 80.2 % (40.0-70.0); PLATELET COUNT (AUTO) 326 K/uL (150-450); RED BLOOD CELL COUNT(AUTO) 4.26 MIL/uL (4.00-5.20)
[2019-12-09 01:08] LABS: ANION GAP 13 mmol/L (8-16); CALCIUM, TOTAL 9.4 mg/dL (8.8-10.5); CARBON DIOXIDE 24 mmol/L (22-29); CHLORIDE 98 mmol/L (98-107); CREATININE 1.05 mg/dL (0.60-1.30); GLOMERULAR FILTR. RATE CALC > 60 mL/min (>60); GLUCOSE,RANDOM 167 mg/dL (70-110); POTASSIUM 3.1 mmol/L (3.5-5.1); SODIUM SERUM 135 mmol/L (136-145); UREA NITROGEN, BLOOD 11 mg/dL (7-18)
[2019-12-09] MEDS ORDERED: POTASSIUM CHLORIDE 20 MEQ ER TABLET PO ONE (01:30)
[2019-12-09 01:33] LABS: ALANINE AMINOTRANSFERASE 29 U/L (12-78); ALBUMIN 3.7 g/dL (3.4-5.0); ALKALINE PHOSPHATASE 54 U/L (46-116); ASPARTATE AMINOTRANSFERASE 26 U/L (15-37); BILIRUBIN,TOTAL 0.5 mg/dL (0.1-1.0); CREATINE KINASE, TOTAL ONLY 341 U/L (26-192); TOTAL PROTEIN, SERUM 7.2 g/dL (6.4-8.2)
[2019-12-09] MEDS ORDERED: ZOLPIDEM TARTRATE 10 MG TABLET PO PRN (02:15)
[2019-12-09] MEDS ORDERED: PERTUSS(ACELL),DIPH,TET VAC/PF 0.5 ML VIAL IM ONE (03:15)
[2019-12-09 04:56] LABS: HCG,QUANTITATIVE < 1 mIU/mL (0-6)
[2019-12-09] MEDS ORDERED: PNEUMOCOCCAL VACCINE POLYVALENT 0.5 ML VIAL [PPSV23] IM ONE (05:30)
[2019-12-09 05:45] VITALS: BP 120/81
[2019-12-09 06:18] LABS: GLUCOMETER DEV NAME(LOC) BV3S.; GLUCOSE,POINT OF CARE 89 MG/DL (70-110)
[2019-12-09] MEDS ORDERED: DOCUSATE SODIUM 100 MG CAPSULE PO PRN (07:45)
[2019-12-09] MEDS ORDERED: ACETAMINOPHEN 325 MG TABLET PO PRN (07:45)
[2019-12-09] MEDS ORDERED: LOPERAMIDE HCL 2 MG CAPSULE PO PRN (07:45)
[2019-12-09] MEDS ORDERED: GuaiFENesin/D-METHORPHAN [SUGAR-FREE] 200-20MG/10 ML SYRUP UDCUP PO PRN (07:45)
[2019-12-09] MEDS ORDERED: ONDANSETRON HCL 4 MG TABLET PO PRN (07:45)
[2019-12-09] MEDS ORDERED: MAGNESIUM HYDROXIDE SUSPENSION 30 ML UDCUP PO PRN (07:45)
[2019-12-09] MEDS ORDERED: CloNIDine HCL 0.1 MG TABLET PO PRN (07:45)
[2019-12-09] MEDS ORDERED: ALBUTEROL SULFATE HFA 90 MCG/PUFF 8 GM INHALER IH PRN (07:45)
[2019-12-09] MEDS ORDERED: NICOTINE 14 MG/24 HOUR PATCH TD PRN (07:45)
[2019-12-09] MEDS ORDERED: MAG HYDROX/AL HYDROX/SIMETH ES 30 ML SUSPENSION UDCUP PO PRN (07:45)
[2019-12-09] MEDS ORDERED: PETROLATUM,WHITE 28 GM JELLY TP PRN (07:45)
[2019-12-09 08:11] VITALS: BP 112/74
[2019-12-09 16:12] VITALS: BP 109/66
[2019-12-09] MEDS: LORazepam 2 MG TABLET PO PRN (17:25)
[2019-12-09] MEDS: BACITRACIN 28 GM OINTMENT TP SCH (17:25)
[2019-12-09] MEDS: OLANZapine 5 MG TABLET PO SCH (17:25)
[2019-12-10 04:20] VITALS: BP 106/68
[2019-12-10 08:28] VITALS: BP 110/69
[2019-12-10] MEDS: BACITRACIN 28 GM OINTMENT TP SCH ×2 (08:41→16:29)
[2019-12-10] MEDS: OLANZapine 5 MG TABLET PO SCH ×2 (08:41→16:29)
[2019-12-10] MEDS: LORazepam 2 MG TABLET PO PRN (16:29)
[2019-12-10 19:09] VITALS: BP 134/87
[2019-12-10] MEDS: HALOPERIDOL 5 MG TABLET PO PRN (19:29)
[2019-12-11 01:08] VITALS: BP 128/83
[2019-12-11 08:14] VITALS: BP 110/74
[2019-12-11 08:19] LABS: CHOL/HDL RATIO 3.5 (3.9-5.7); FREE T4 (FREE THYROXINE) 1.08 ng/dL (0.76-1.46); POTASSIUM 4.2 mmol/L (3.5-5.1); THYROID STIMULATING HORMONE 3.66 uIU/mL (0.36-3.74)
[2019-12-11] MEDS: OLANZapine 5 MG TABLET PO SCH ×2 (08:59→16:46)
[2019-12-11] MEDS: IBUPROFEN 400 MG TABLET PO PRN (08:59)
[2019-12-11] MEDS: BACITRACIN 28 GM OINTMENT TP SCH ×2 (08:59→17:03)
[2019-12-11] MEDS: LORazepam 2 MG TABLET PO PRN ×2 (08:59→16:46)
[2019-12-11 16:00] VITALS: BP 123/69
[2019-12-12 02:11] VITALS: BP 100/63
[2019-12-12 08:08] VITALS: BP 114/71
[2019-12-12] MEDS: OLANZapine 5 MG TABLET PO SCH ×2 (08:35→16:24)
[2019-12-12] MEDS: LORazepam 2 MG TABLET PO PRN ×2 (08:35→16:24)
[2019-12-12] MEDS: BACITRACIN 28 GM OINTMENT TP SCH ×2 (08:35→16:30)
[2019-12-12 16:04] VITALS: BP 110/70
[2019-12-12] MEDS: HALOPERIDOL 5 MG TABLET PO PRN (16:24)
[2019-12-13 03:44] VITALS: BP 114/72
[2019-12-13] MEDS: LORazepam 2 MG TABLET PO PRN ×2 (04:41→15:16)
[2019-12-13] MEDS: OLANZapine 5 MG TABLET PO SCH ×2 (09:00→16:01)
[2019-12-13] MEDS: BACITRACIN 28 GM OINTMENT TP SCH ×2 (09:00→16:02)
[2019-12-13 09:27] LABS: APPEARANCE,URINE CLOUDY (CLEAR); BILIRUBIN,URINE NEGATIVE (NEGATIVE); GLUCOSE, URINE (UA) NEGATIVE (NEGATIVE); KETONES,URINE NEGATIVE (NEGATIVE); LEUKOCYTE ESTERASE ,URINE TRACE (NEGATIVE); NITRATE,URINE NEGATIVE (NEGATIVE); OCCULT BLOOD,URINE NEGATIVE (NEGATIVE); PROTEIN,URINE NEGATIVE (NEGATIVE); UROBILINOGEN,URINE 0.2 mg/dL (<=1.0)
[2019-12-13 09:32] LABS: AMPHET/METH SCREEN,URINE NEGATIVE (NEGATIVE); BARBITURATE SCREEN, URINE NEGATIVE (NEGATIVE); BENZODIAZEPINES SCREEN,URINE NEGATIVE (NEGATIVE); CANNABINOID SCREEN,URINE POSITIVE (NEGATIVE); COCAINE SCREEN,URINE NEGATIVE (NEGATIVE); METHADONE SCREEN, URINE NEGATIVE (NEGATIVE); OPIATE SCREEN,URINE NEGATIVE (NEGATIVE)
[2019-12-13 09:33] LABS: PHENCYCLIDINE SCREEN,URINE NEGATIVE (NEGATIVE)
[2019-12-13 10:15] LABS: BACTERIA,URINE None Seen /HPF (None Seen); RBC,URINE None Seen /HPF (0-2); SQUAMOUS EPITHELIAL CELL,UR Many /LPF (None Seen); WBC,URINE 0-2 /HPF (0-5)
[2019-12-13] MEDS: CEPHALEXIN MONOHYDRATE 500 MG CAPSULE PO SCH ×2 (12:27→17:14)
[2019-12-13 13:57] VITALS: BP 116/73
[2019-12-13] MEDS: HALOPERIDOL 5 MG TABLET PO PRN (15:16)
[2019-12-13] MEDS: IBUPROFEN 400 MG TABLET PO PRN (16:00)
[2019-12-13] MEDS: SULFAMETHOX/TRIMETH DS 800-160 MG/TABLET PO SCH (16:01)
[2019-12-13 16:10] VITALS: BP 100/73
[2019-12-14] MEDS: CEPHALEXIN MONOHYDRATE 500 MG CAPSULE PO SCH ×5 (00:12→23:51)
[2019-12-14 06:36] VITALS: BP 104/66
[2019-12-14 08:17] VITALS: BP 118/65
[2019-12-14] MEDS: BACITRACIN 28 GM OINTMENT TP SCH ×2 (08:20→16:29)
[2019-12-14] MEDS: SULFAMETHOX/TRIMETH DS 800-160 MG/TABLET PO SCH ×2 (08:20→16:21)
[2019-12-14] MEDS: LORazepam 2 MG TABLET PO PRN ×2 (08:20→16:33)
[2019-12-14] MEDS: OLANZapine 5 MG TABLET PO SCH ×2 (08:20→16:21)
[2019-12-14 16:00] VITALS: BP 118/71
[2019-12-15 00:11] VITALS: BP 106/76
[2019-12-15] MEDS: CEPHALEXIN MONOHYDRATE 500 MG CAPSULE PO SCH ×3 (06:12→17:02)
[2019-12-15 08:10] VITALS: BP 103/62
[2019-12-15] MEDS: BACITRACIN 28 GM OINTMENT TP SCH ×2 (08:21→16:54)
[2019-12-15] MEDS: SULFAMETHOX/TRIMETH DS 800-160 MG/TABLET PO SCH ×2 (08:22→16:53)
[2019-12-15] MEDS: OLANZapine 5 MG TABLET PO SCH ×2 (08:22→16:54)
[2019-12-15] MEDS: LORazepam 2 MG TABLET PO PRN ×3 (08:22→18:25)
[2019-12-15 12:45] VITALS: BP 112/70
[2019-12-15 16:16] VITALS: BP 117/66
[2019-12-15] MEDS: OXcarbazepine 300 MG TABLET PO SCH (17:47)
[2019-12-15] MEDS: HALOPERIDOL 5 MG TABLET PO PRN (18:32)
[2019-12-15] MEDS: GABAPENTIN 300 MG CAPSULE PO SCH (20:14)
[2019-12-15] MEDS: QUEtiapine FUMARATE 200 MG TABLET PO SCH (20:14)
[2019-12-16] MEDS: CEPHALEXIN MONOHYDRATE 500 MG CAPSULE PO SCH ×4 (00:05→17:28)
[2019-12-16 08:11] VITALS: BP 108/64
[2019-12-16] MEDS: SULFAMETHOX/TRIMETH DS 800-160 MG/TABLET PO SCH ×2 (08:31→17:28)
[2019-12-16] MEDS: OXcarbazepine 300 MG TABLET PO SCH ×2 (08:31→17:28)
[2019-12-16] MEDS: QUEtiapine FUMARATE 100 MG TABLET PO SCH (08:31)
[2019-12-16] MEDS: HALOPERIDOL 5 MG TABLET PO PRN ×2 (08:31→17:29)
[2019-12-16] MEDS: OLANZapine 5 MG TABLET PO SCH ×2 (08:31→17:28)
[2019-12-16] MEDS: LORazepam 2 MG TABLET PO PRN ×2 (08:32→17:29)
[2019-12-16] MEDS: BACITRACIN 28 GM OINTMENT TP SCH ×2 (08:32→17:00)
[2019-12-16 16:04] VITALS: BP 112/76
[2019-12-16] MEDS: ASCORBIC ACID 500 MG TABLET PO SCH (17:28)
[2019-12-16] MEDS: QUEtiapine FUMARATE 200 MG TABLET PO SCH (20:47)
[2019-12-16] MEDS: GABAPENTIN 300 MG CAPSULE PO SCH (20:47)
[2019-12-17] MEDS: CEPHALEXIN MONOHYDRATE 500 MG CAPSULE PO SCH ×4 (00:03→18:49)
[2019-12-17 00:18] VITALS: BP 105/71
[2019-12-17] MEDS: SULFAMETHOX/TRIMETH DS 800-160 MG/TABLET PO SCH ×2 (08:19→17:15)
[2019-12-17] MEDS: QUEtiapine FUMARATE 100 MG TABLET PO SCH (08:20)
[2019-12-17] MEDS: MULTIVITAMINS WITH MINERALS, THERAPEUTIC TABLET PO SCH (08:20)
[2019-12-17] MEDS: OLANZapine 5 MG TABLET PO SCH ×2 (08:23→17:15)
[2019-12-17] MEDS: OXcarbazepine 300 MG TABLET PO SCH ×2 (08:24→17:15)
[2019-12-17] MEDS: ASCORBIC ACID 500 MG TABLET PO SCH ×2 (08:25→17:15)
[2019-12-17] MEDS: LORazepam 2 MG TABLET PO PRN (08:40)
[2019-12-17] MEDS: HALOPERIDOL 5 MG TABLET PO PRN (08:41)
[2019-12-17 09:12] VITALS: BP 101/68
[2019-12-17] MEDS: BACITRACIN 28 GM OINTMENT TP SCH ×2 (10:49→17:15)
[2019-12-17] MEDS: QUEtiapine FUMARATE 200 MG TABLET PO SCH (20:28)
[2019-12-17] MEDS: GABAPENTIN 300 MG CAPSULE PO SCH (20:28)
[2019-12-18] MEDS: CEPHALEXIN MONOHYDRATE 500 MG CAPSULE PO SCH ×2 (00:08→06:00)
[2019-12-18 03:50] VITALS: BP 110/67
[2019-12-18 08:11] VITALS: BP 110/66
[2019-12-18] MEDS: OLANZapine 5 MG TABLET PO SCH ×2 (08:23→15:52)
[2019-12-18] MEDS: MULTIVITAMINS WITH MINERALS, THERAPEUTIC TABLET PO SCH (08:23)
[2019-12-18] MEDS: QUEtiapine FUMARATE 100 MG TABLET PO SCH (08:23)
[2019-12-18] MEDS: SULFAMETHOX/TRIMETH DS 800-160 MG/TABLET PO SCH ×2 (08:23→15:52)
[2019-12-18] MEDS: ASCORBIC ACID 500 MG TABLET PO SCH ×2 (08:23→15:52)
[2019-12-18] MEDS: OXcarbazepine 300 MG TABLET PO SCH ×2 (08:24→15:53)
[2019-12-18] MEDS: BACITRACIN 28 GM OINTMENT TP SCH ×2 (08:25→15:54)
[2019-12-18] MEDS: HALOPERIDOL 5 MG TABLET PO PRN ×2 (12:36→16:36)
[2019-12-18 16:01] VITALS: BP 109/52
[2019-12-18] MEDS: LORazepam 2 MG TABLET PO PRN (16:36)
[2019-12-18] MEDS: GABAPENTIN 300 MG CAPSULE PO SCH (20:02)
[2019-12-18] MEDS: QUEtiapine FUMARATE 200 MG TABLET PO SCH (20:02)
[2019-12-19 07:00] VITALS: BP 101/62
[2019-12-19] MEDS ORDERED: QUET200T PO (08:04)
[2019-12-19] MEDS ORDERED: QUET100T PO (08:04)
[2019-12-19] MEDS ORDERED: GABA-1181 PO (08:04)
[2019-12-19] MEDS ORDERED: BACTDSB PO (08:04)
[2019-12-19] MEDS ORDERED: OXCA300T57 PO (08:04)
[2019-12-19] MEDS ORDERED: OLAN5TAB2 PO (08:04)
[2019-12-19 08:14] VITALS: BP 107/71
[2019-12-19] MEDS: HALOPERIDOL 5 MG TABLET PO PRN (09:17)
[2019-12-19] MEDS: QUEtiapine FUMARATE 100 MG TABLET PO SCH (09:17)
[2019-12-19] MEDS: OLANZapine 5 MG TABLET PO SCH (09:17)
[2019-12-19] MEDS: SULFAMETHOX/TRIMETH DS 800-160 MG/TABLET PO SCH (09:17)
[2019-12-19] MEDS: MULTIVITAMINS WITH MINERALS, THERAPEUTIC TABLET PO SCH (09:17)
[2019-12-19] MEDS: ASCORBIC ACID 500 MG TABLET PO SCH (09:17)
[2019-12-19] MEDS: OXcarbazepine 300 MG TABLET PO SCH (09:17)
[2019-12-19] MEDS: BACITRACIN 28 GM OINTMENT TP SCH (09:18)
== END 2019-12-19 13:15 | disposition home or self-care (01) | DRG 753 ==
LOC: EMS 23:42 → B3A 12-09 02:18
PROVIDERS: ADMIT Psychiatry & Neurology Psychiatry; ATTEND Psychiatry & Neurology Psychiatry
DX: F31.5 Bipolar disorder, current episode depressed, severe, with psychotic features (principal); Z20.828 Contact with and (suspected) exposure to other viral communicable diseases; Z91.018 Allergy to other foods; F41.9 Anxiety disorder, unspecified; E87.6 Hypokalemia; Z59.0 Homelessness; R45.851 Suicidal ideations; L03.113 Cellulitis of right upper limb; F90.9 Attention-deficit hyperactivity disorder, unspecified type; E11.9 Type 2 diabetes mellitus without complications; E03.9 Hypothyroidism, unspecified; F19.10 Other psychoactive substance abuse, uncomplicated; D72.829 Elevated white blood cell count, unspecified
CPT/HCPCS: 80307; 83036; 84132; 84439; 84443; 90715; 99291; G0480; 36415-L1; 36415-TC; 71045-TC; 80061-TC; U0003-CS

== ENCOUNTER 2019-12-13 06:55 | Emergency (ER) | payer MEDICAID, OTHER ==
[~2019-12-13] VITALS: Ht 144.8 cm; Wt 56.8 kg
[2019-12-13] MEDS ORDERED: IBUPROFEN 600 MG TABLET PO ONE (07:15)
[2019-12-13] MEDS ORDERED: LIDOCAINE 1% 10 ML VIAL INJ ONE (08:00)
[2019-12-13] MEDS ORDERED: SULFAMETHOX/TRIMETH DS 800-160 MG/TABLET PO ONE (09:45)
[2019-12-13] MEDS ORDERED: CEPHALEXIN MONOHYDRATE 500 MG CAPSULE PO ONE (09:45)
[2019-12-13 10:35] VITALS: BP 115/80
== END 2019-12-13 11:02 | disposition home or self-care (01) ==
LOC: EMS 06:55
DX: S61.431A Puncture wound without foreign body of right hand, initial encounter (principal); F15.90 Other stimulant use, unspecified, uncomplicated; F12.90 Cannabis use, unspecified, uncomplicated; F31.9 Bipolar disorder, unspecified; X58.XXXA Exposure to other specified factors, initial encounter; Y93.89 Activity, other specified; Y92.89 Other specified places as the place of occurrence of the external cause; Y99.8 Other external cause status
CPT/HCPCS: 26010; 73140; 99284; J3490; 10060; 10160